=== PATIENT | male | born 1990 | race Caucasian/White ===

== ENCOUNTER 2016-09-12 15:20 | Emergency (ER) | payer MEDICAID, OTHER ==
[2016-09-12 16:27] VITALS: BP 135/75; PULSE 76; RESP 16; TEMP 98.1; O2SAT 97
--- NOTE | 2016-09-12 16:59 | UCPHY ---
H & P Time Seen by Provider: 09/12/16 16:51 Patient Type: Established HPI/ROS: This patient has tonsil pain for 3 days on the left side. He reports the pain is mild to moderate. Pain worsens but when he swallows food be still tolerating food. He notes his when looking in the mirror that the exudate associated with this is enlarged quite a bit over the past 24 hours so came in for evaluation. He reports that he had nasal congestion and URI symptoms last week as well as a mild cough that have all resolved prior to the onset of the tonsil pain. ROS: No fevers or chills over the past 24 hours. No significant fatigue. HEENT: He reports no ear pain. No nasal congestion at this time. No facial pain. Pulmonary: No cough , no skin rash, no joint pain 7 point ROS is otherwise negative. Past Medical/Surgical History: Otherwise healthy Smoking Status: Former smoker Physical Exam: Physical Exam Vital signs are normal. General: No acute distress HEENT: Nose: Clear discharge bilaterally. No sinus tenderness to percussion. Ears: External canals and tympanic membranes are clear with no erythema or abnormal findings bilaterally. Oropharynx: The patient has left tonsillar swelling 3+ with a significant exudate. Right tonsil is normal. No dysphonia. No drooling or stridor. Eyes: Pupils equal and react to light. Extraocular motions are intact. Lungs: Clear to auscultation bilaterally with no rales, rhonchi or wheeze. No respiratory distress. Cardiac: Regular rate and rhythm with no murmur gallop or rub Skin: No rash or pallor. Neuro: Alert with no focal deficits noted. Differential diagnosis: Strep tonsillitis, viral tonsillitis Constitutional: Initial Vital Signs Temperature (C) 36.7 C 09/12/16 16:10 Heart Rate 76 09/12/16 16:10 Respiratory Rate 16 09/12/16 16:10 Blood Pressure 135/75 H 09/12/16 16:10 O2 Sat (%) 97 09/12/16 16:10 O2 Delivery Mode Room Air Allergies/Adverse Reactions: No Known Allergies Allergy (Unverified 09/24/14 11:28) Home Medications: Medication Instructions Recorded Penicillin V Potassium [Penicillin 500 mg PO BID #20 09/12/16 VK] Medical Decision Making ED Course/Re-evaluation: Patient appears well clinically without fever but he has significant tonsillar findings. Given this will cover him with penicillin antibiotic. - Data Points Laboratory Results: 09/12/16 09/12/16 Unknown 16:11 Group A Strep Screen NEGATIVE (NEGATIVE) Group A Strep DNA Pending Departure - Departure Disposition: Home, Routine, Self-Care Clinical Impression: Tonsillitis with exudate Condition: Good Instructions: Tonsillitis (ED) Additional Instructions: Diagnosis: Tonsillitis Plan: Penicillin antibiotic Ibuprofen Tylenol for discomfort Your symptoms should improve over the next 7 days or so. If not, follow up with Dr. Cook-ENT specialist for further evaluation. Referrals: NONE *PRIMARY CARE P,. [Primary Care Provider] - As per Instructions Keith Cook MD [Medical Doctor] - As per Instructions Prescriptions: Penicillin V Potassium [Penicillin VK] 500 mg PO BID #20 - PQRS PQRS Measurement: NA
== END 2016-09-12 17:05 | disposition home or self-care (01) ==
LOC: CED 15:20
DX: J03.90 Acute tonsillitis, unspecified (principal); Z87.891 Personal history of nicotine dependence
CPT/HCPCS: 87880-PO; 99214-PO; G0463-PO